=== PATIENT | female | born 1975 | race Asian ===

== ENCOUNTER 2017-07-21 20:47 | Emergency (ER) | payer MEDICAID ==
[~2017-07-21] VITALS: Ht 167.6 cm; Wt 51.3 kg
[2017-07-21 21:52] VITALS: BP 127/76
== END 2017-07-21 23:44 | disposition home or self-care (01) ==
LOC: ER 20:48
DX: S86.811A Strain of other muscle(s) and tendon(s) at lower leg level, right leg, initial encounter (principal); Z88.1 Allergy status to other antibiotic agents; Z91.040 Latex allergy status; X58.XXXA Exposure to other specified factors, initial encounter; Y93.B9 Activity, other involving muscle strengthening exercises; Y92.89 Other specified places as the place of occurrence of the external cause; Y99.8 Other external cause status
CPT/HCPCS: 99282; A4606; Z7610